=== PATIENT | female | born 1955 | race Caucasian/White ===

== ENCOUNTER → 2018-05-24 | Day surgery (SDC) | payer OTHER ==
[~2018-05-24] MED LIST: ATENOLOL50 MG PO; FENTANYL CITRATE/PF 100MCG/2 ML INJ ONE; FOLIC ACID1 MG PO; GLUCAGON FOR INJ 1 MG VIAL ONE; HYOSCYAMINE SULFATE 0.5 MG/ML INJ ONE; METHOTREXATE2.5 MG INJ; MIDAZOLAM HCL 2 MG/2 ML VIAL ONE; NEXIUM40 M1 PO; PROPOFOL IV EMULSION 10 MG/ML 50 ML VIAL ONE; REMICADE100 MG/VIA IV
--- OUTSIDE RECORDS SUMMARY | 2018-05-24 09:16 | XMS REPORT ---
Author Author Chloe James Organization eClinicalWorks Address Unknown Phone Unavailable Care Team Providers Care Drafter Patent Name Role Phone Chloe James CP Unavailable Allergies, Adverse Reactions, Alerts Substance Reaction Event Type sulfa hives Drug Allergy Problems Problem Type Condition Code Onset Dates Condition Status Problem Body mass index (BMI) 22.0-22.9, adult Z68.22 Active Problem Rheumatoid arthritis without rheumatoid factor, multiple sites M06.09 Active Problem Sicca, unspecified type M35.00 Active Assessment Other intermediate (current) drug therapy Z79.899 Active Problem Other ferry terminal supervisor (current) drug therapy Z79.899 Active Assessment Rheumatoid arthritis without rheumatoid factor, multiple sites M06.09 Active Medications Medication Code System Code Instructions Start Date End Date Status Dosage Atenolol [facility] 88762122750 100 MG Orally at bedtime Active 1 tablet Rasuvo [facility] 68671455039 12.5 MG/0.25ML Subcutaneous a week Active inject once Folic Acid [facility] 46842011555 1 Active TAKE 1 TABLET BY MOUTH DAILY Esomeprazole Magnesium [facility] 94802679986 40 MG Orally twice a day Active take 1 capsule Remicade [facility] 27667192679 7MG/KG Q 7 WKS Active 400MG IV Vital Signs Date/Time: June 21, 2017 BMI 24.73 Index Weight 148.6 lbs Height 65 in Temperature 98.4 F Cardiac Monitoring Heart Rate 70 /min Blood Pressure Diastolic 84 mm Hg Blood Pressure Systolic 131 mm Hg Results No Known Results Summary Purpose eClinicalWorks Submission
--- OUTSIDE RECORDS SUMMARY | 2018-05-24 09:16 | XMS REPORT ---
Author Leonid Velasquez Organization e[employer] Address Unknown Phone Unavailable Care Team Providers Care Game Show Host Name Role Phone Leonid Alvarez CP Unavailable Allergies No Known Allergies Problems Problem Type Condition Code Onset Dates Condition Status Problem Body mass index (BMI) 22.0-22.9, adult Z68.22 Active Problem Rheumatoid arthritis without rheumatoid factor, multiple sites M06.09 Active Problem Sicca, unspecified type M35.00 Active Problem Other fdc (current) drug therapy Z79.899 Active Medications No Known Medications Results No Known Results Summary Purpose [employer] Submission
--- OUTSIDE RECORDS SUMMARY | 2018-05-24 09:16 | XMS REPORT ---
Author Author Chloe James [facility] [place] eClinicalWorks Address Unknown Phone Unavailable Care Team Providers Care Digital Media Designer Name Role Phone Chloe James CP Unavailable Allergies, Adverse Reactions, Alerts Substance Reaction Event Type sulfa hives Drug Allergy Problems Problem Type Condition Code Onset Dates Condition Status Problem Body mass index (BMI) 22.0-22.9, adult Z68.22 Active Problem Rheumatoid arthritis without rheumatoid factor, multiple sites M06.09 Active Problem Sicca, unspecified type M35.00 Active Assessment Other residential (current) drug therapy Z79.899 Active Problem 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 Assessment Rheumatoid arthritis without rheumatoid factor, multiple sites M06.09 Active Medications Medication Code System Code Instructions Start Date End Date Status Dosage Remicade [facility] 72458880619 7MG/KG Q 7 WKS Active 400MG IV Esomeprazole Magnesium [facility] 81563555004 40 MG Orally twice a day Active take 1 capsule Rasuvo [facility] 86269139310 12.5 MG/0.25ML Subcutaneous a week Active inject once Folic Acid [facility] 40529431380 1 Active TAKE 1 TABLET BY MOUTH DAILY Atenolol [facility] 67849191343 100 MG Orally at bedtime Active 1 tablet Vital Signs Date/Time: August 09, 2017 BMI 24.89 Index Weight 149.6 lbs Height 65 in Temperature 98.0 F Cardiac Monitoring Heart Rate 78 /min Blood Pressure Diastolic 98 mm Hg Blood Pressure Systolic 144 mm Hg Results Name Result Date Reference Range Unit Abnormality Flag COMPREHENSIVE METABOLIC PANEL W/EGFR ----CALCIUM 9.0 20170809 8.6-10.4 mg/dL N ----CARBON DIOXIDE 26 20170809 20-31 mmol/L N ----ALT 26 20170809 6-29 U/L N ----CREATININE 0.88 20170809 0.50-0.99 mg/dL N ----AST 19 20170809 10-35 U/L N ----eGFR NON-AFR. [place] 71 20170809 > OR=60 mL/min/1.73m2 N ----ALKALINE PHOSPHATASE 63 20170809 33-130 U/L N ----eGFR 83 20170809 > OR=60 mL/min/1.73m2 N ----BILIRUBIN, TOTAL 0.3 20170809 0.2-1.2 mg/dL N ----BUN/CREATININE RATIO NOT APPLICABLE 20170809 6-22 (calc) ----ALBUMIN/GLOBULIN RATIO 2.0 20170809 1.0-2.5 (calc) N ----SODIUM 138 20170809 135-146 mmol/L N ----GLOBULIN 2.2 20170809 1.9-3.7 g/dL (calc) N ----POTASSIUM 4.0 20170809 3.5-5.3 mmol/L N ----GLUCOSE 109 20170809 65-139 mg/dL N ----CHLORIDE 105 20170809 98-110 mmol/L N ----ALBUMIN 4.3 20170809 3.6-5.1 g/dL N ----UREA NITROGEN (BUN) 14 20170809 7-25 mg/dL N ----PROTEIN, TOTAL 6.5 20170809 6.1-8.1 g/dL N SED RATE BY MODIFIED WESTERGREN ----SED RATE BY MODIFIED WESTERGREN 2 20170809 < OR=30 mm/h N C-REACTIVE PROTEIN ----C-REACTIVE PROTEIN 0.7 20170809 <8.0 mg/L N CBC (INCLUDES DIFF/PLT) ----MCHC 34.1 20170809 32.0-36.0 g/dL N ----MCH 32.6 20170809 27.0-33.0 pg N ----PLATELET COUNT 309 20170809 140-400 Thousand/uL N ----RDW 12.9 20170809 11.0-15.0 % N ----BASOPHILS 0.6 20170809 % N ----ABSOLUTE NEUTROPHILS 4175 20170809 0309-8849 cells/uL N ----ABSOLUTE LYMPHOCYTES 2101 20170809 850-3900 cells/uL N ----MPV 10.1 20170809 7.5-12.5 fL N ----ABSOLUTE BASOPHILS 41 20170809 0-200 cells/uL N ----HEMATOCRIT 38.7 20170809 35.0-45.0 % N ----NEUTROPHILS 61.4 20170809 % N ----MCV 95.6 20170809 80.0-100.0 fL N ----RED BLOOD CELL COUNT 4.05 20170809 3.80-5.10 Million/uL N ----ABSOLUTE MONOCYTES 394 20170809 200-950 cells/uL N ----ABSOLUTE EOSINOPHILS 88 20170809 15-500 cells/uL N ----HEMOGLOBIN 13.2 20170809 11.7-15.5 g/dL N ----EOSINOPHILS 1.3 20170809 % N ----WHITE BLOOD CELL COUNT 6.8 20170809 3.8-10.8 Thousand/uL N ----LYMPHOCYTES 30.9 20170809 % N ----MONOCYTES 5.8 20170809 % N Summary Purpose eClinicalWorks Submission
--- OUTSIDE RECORDS SUMMARY | 2018-05-24 09:16 | XMS REPORT ---
Author Author Merari Plummer [facility] eClinicalWorks Address Unknown Phone Unavailable Care Team Providers Care Warehouse Order Picker Name Role Phone Merari Plummer Unavailable Allergies, Adverse Reactions, Alerts Substance Reaction Event Type sulfa hives Drug Allergy Problems Problem Type Condition Code Onset Dates Condition Status Problem Body mass index (BMI) 22.0-22.9, adult Z68.22 Active Problem Rheumatoid arthritis without rheumatoid factor, multiple sites M06.09 Active Problem Sicca, unspecified type M35.00 Active Assessment Rheumatoid arthritis without rheumatoid factor, multiple sites M06.09 Active Assessment Other [facility]p (current) drug therapy Z79.899 Active Problem 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 Medications Medication Code System Code Instructions Start Date End Date Status Dosage Esomeprazole Magnesium ND 40347228460 40 MG Orally twice a day Active take 1 capsule Rasuvo [facility] 56205847809 12.5 MG/0.25ML Subcutaneous a week Active inject once Atenolol ND 22845964354 100 MG Orally at bedtime Active 1 tablet Folic Acid ND 50487210104 1 Active TAKE 1 TABLET BY MOUTH DAILY Remicade ND 58203309534 7MG/KG Q 7 WKS Active 400MG IV Folic Acid ND 03378895764 1 MG Orally Once a day Active 1 tablet Vital Signs Date/Time: Jan 03, 2018 BMI 24.76 Index Weight 146.5 lbs Height 64.5 in Temperature 98.2 F Cardiac Monitoring Heart Rate 74 /min Blood Pressure Diastolic 78 mm Hg Blood Pressure Systolic 122 mm Hg Results No Known Results Summary Purpose eClinicalWorks Submission
--- OUTSIDE RECORDS SUMMARY | 2018-05-24 09:16 | XMS REPORT ---
Author Leonid Velasquez Organization eClinical[employer] Address Unknown Phone Unavailable Care Team Providers Care Siding Mechanic Name Role Phone Leonid Alvarez CP Unavailable Allergies No Known Allergies Problems Problem Type Condition Code Onset Dates Condition Status Problem Body mass index (BMI) 22.0-22.9, adult Z68.22 Active Problem Rheumatoid arthritis without rheumatoid factor, multiple sites M06.09 Active Problem Sicca, unspecified type M35.00 Active Problem Other retirement (current) drug therapy Z79.899 Active Medications No Known Medications Results No Known Results Summary Purpose [employer]k Submission
--- OUTSIDE RECORDS SUMMARY | 2018-05-24 09:16 | XMS REPORT ---
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.899 Active Assessment Rheumatoid arthritis without rheumatoid factor, multiple sites M06.09 Active Medications Medication Code System Code Instructions Start Date End Date Status Dosage Folic Acid [facility] 98066484880 1 MG Orally Once a day Active 1 tablet Remicade [facility] 23133888987 7MG/KG Q 7 WKS Active 400MG IV Atenolol [facility] 06015724850 100 MG Orally at bedtime Active 1 tablet Esomeprazole Magnesium [facility] 12797172260 40 MG Orally twice a day Active take 1 capsule Rasuvo [facility] 16000708718 12.5 MG/0.25ML Subcutaneous a week Active inject once Vital Signs Date/Time: Nov 15, 2017 BMI 24.64 Index Weight 145.8 lbs Height 64.5 in Temperature 98.1 F Cardiac Monitoring Heart Rate 77 /min Blood Pressure Diastolic 86 mm Hg Blood Pressure Systolic 121 mm Hg Results No Known Results Summary Purpose eClinicalWorks Submission
--- OUTSIDE RECORDS SUMMARY | 2018-05-24 09:16 | XMS REPORT ---
Author Leonid Velasquez Organization eClinicalWorks Address Unknown Phone Unavailable Care Team Providers Care Spot Machine Operator Name Role Phone Leonid Alvarez CP Unavailable Allergies No Known Allergies Problems Problem Type Condition Code Onset Dates Condition Status Problem Body mass index (BMI) 22.0-22.9, adult Z68.22 Active Problem Rheumatoid arthritis without rheumatoid factor, multiple sites M06.09 Active Problem Sicca, unspecified type M35.00 Active Problem Other alf (current) drug therapy Z79.899 Active Assessment Rheumatoid arthritis without rheumatoid factor, multiple sites M06.09 Active Medications Medication Code System Code Instructions Start Date End Date Status Dosage Folic Acid [facility] 32390771162 1 MG Orally Once a day Active 1 tablet Results No Known Results Summary Purpose eClinicalWorks Submission
--- OUTSIDE RECORDS SUMMARY | 2018-05-24 09:16 | XMS REPORT ---
Author Author Chloe James Organization eClinicalWorks Address Unknown Phone Unavailable Care Team Providers Care Video Technician Name Role Phone Chloe James CP Unavailable Allergies No Known Allergies Problems Problem Type Condition Code Onset Dates Condition Status Problem Body mass index (BMI) 22.0-22.9, adult Z68.22 Active Problem Rheumatoid arthritis without rheumatoid factor, multiple sites M06.09 Active Problem Sicca, unspecified type M35.00 Active Problem Other retirement (current) drug therapy Z79.899 Active Medications Medication Code System Code Instructions Start Date End Date Status Dosage Rasuvo [facility] 98036941173 12.5 MG/0.25ML Subcutaneous a week September 27, 2017 Active inject once Results No Known Results Summary Purpose eClinicalWorks Submission
--- OUTSIDE RECORDS SUMMARY | 2018-05-24 09:16 | XMS REPORT ---
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 Medications Medication Code System Code Instructions Start Date End Date Status Dosage Folic Acid [facility] 14591677237 1 MG Orally Once a day Active 1 tablet Remicade [facility] 66349803886 7MG/KG Q 7 WKS Active 400MG IV Rasuvo ND 52870431166 12.5 MG/0.25ML Subcutaneous a week Active inject once Esomeprazole Magnesium ND 09204666660 40 MG Orally twice a day Active take 1 capsule Atenolol ND 18003716511 100 MG Orally at bedtime Active 1 tablet Vital Signs Date/Time: Feb 21, 2018 BMI 25 Index Weight 143.7 lbs Height 64 in Temperature 98.3 F Cardiac Monitoring Heart Rate 68 /min Blood Pressure Diastolic 98 mm Hg Blood Pressure Systolic 126 mm Hg Results No Known Results Summary Purpose eClinicalWorks Submission
--- OUTSIDE RECORDS SUMMARY | 2018-05-24 09:16 | XMS REPORT ---
Author Leonid Velasquez Organization eClinicalWorks Address Unknown Phone Unavailable Care Team Providers Care Foreman/Pile Driving And Erection Name Role Phone Leonid Alvarez CP Unavailable Allergies No Known Allergies Problems Problem Type Condition Code Onset Dates Condition Status Problem Body mass index (BMI) 22.0-22.9, adult Z68.22 Active Problem Rheumatoid arthritis without rheumatoid factor, multiple sites M06.09 Active Problem Sicca, unspecified type M35.00 Active Problem Other jail (current) drug therapy Z79.899 Active Medications No Known Medications Results No Known Results Summary Purpose [id number] Submission
--- OUTSIDE RECORDS SUMMARY | 2018-05-24 09:17 | XMS REPORT ---
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 Problem Body mass index (BMI) 22.0-22.9, adult Z68.22 Active Assessment Rheumatoid arthritis without rheumatoid factor, multiple sites M06.09 Active Assessment 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 Medications Medication Code System Code Instructions Start Date End Date Status Dosage Atenolol ND 20134898325 100 MG Orally at bedtime Active 1 tablet Esomeprazole Magnesium ND 52270062820 40 MG Orally twice a day Active take 1 capsule Rasuvo ND 96815928915 12.5 MG/0.25ML Subcutaneous a week Active inject once Remicade ND 25485413643 7MG/KG Q 7 WKS Active 400MG IV Folic Acid ND 82775317862 1 Active TAKE 1 TABLET BY MOUTH ONCE A DAY FOR 30 DAYS Vital Signs Date/Time: Mar 15, 2017 BMI 24.29 Index Weight 146 lbs Height 65 in Temperature 98.3 F Cardiac Monitoring Heart Rate 78 /min Blood Pressure Diastolic 80 mm Hg Blood Pressure Systolic 136 mm Hg Results No Known Results Summary Purpose eClinicalWorks Submission
--- OUTSIDE RECORDS SUMMARY | 2018-05-24 09:17 | XMS REPORT | Continuity of Care Document ---
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 Diagnosis 02/23/2018 Adan Alvarez Body mass index 22.0-22.9, adult Active Problem 02/23/2018 Adan Alvarez Sicca, unspecified type Active Problem 02/23/2018 Adan Alvarez Medications Medication Details Route Status Patient Instructions Ordering Provider Order Date Source Rasuvo inject once Subcutaneous Active 12.5 MG/0.25ML Subcutaneous a week Jacob 09/27/2017 Adan Alvarez Esomeprazole Magnesium take 1 capsule Orally Active 40 MG Orally twice a day [place] Adan Alvarez Folic Acid TAKE 1 TABLET BY MOUTH DAILY NA Active 1 Plummer Adan Alvarez Atenolol 1 tablet Orally Active 100 MG Orally at bedtime Plummer Adan Alvarez Remicade 400MG IV NA Active 7MG/KG Q 7 WKS Plummer Adan Alvarez Rasuvo inject once Subcutaneous Active 12.5 MG/0.25ML Subcutaneous a week Plummer Adan Alvarez Folic Acid 1 tablet Orally Active 1 MG Orally Once a day Elian Alvarez Allergies, Adverse Reactions, Alerts Substance Category Reaction Severity Reaction type Status Date Reported Comments Source sulfa Adverse Reaction hives Adverse Reaction Active 02/21/2018 Adan Alvarez Immunizations Immunization Date Given Site Status Last Updated Comments Source Results Order Name Results Value Reference Range Date Interpretation Comments Source Vital Signs Vital Sign Value Date Comments Source Weight 143.7 02/21/2018 Adan Alvarez Height 64 02/21/2018 Adan Alvarez Temperature Oral (F) 98.3 F 02/21/2018 Adan Alvarez Heart Rate 68 02/21/2018 Adan Alvarez Diastolic (mm Hg) 98 02/21/2018 Adan Alvarez Systolic (mm Hg) 126 02/21/2018 Adan Alvarez Weight 146.5 01/03/2018 Adan Alvarez Height 64.5 01/03/2018 Adan Alvarez Temperature Oral (F) 98.2 F 01/03/2018 Adan Alvarez Heart Rate 74 01/03/2018 Adan Alvarez Diastolic (mm Hg) 78 01/03/2018 Adan Alvarez Systolic (mm Hg) 122 01/03/2018 Adan Alvarez Weight 145.8 11/15/2017 Adan Alvarez Height 64.5 11/15/2017 Adan Alvarez Temperature Oral (F) 98.1 F 11/15/2017 Adan Alvarez Heart Rate 77 11/15/2017 Adan Alvarez Diastolic (mm Hg) 86 11/15/2017 Adan Alvarez Systolic (mm Hg) 121 11/15/2017 Adan Alvarez Weight 149.6 08/09/2017 Adan Alvarez Height 65 08/09/2017 Adan Alvarez Temperature Oral (F) 98.0 F 08/09/2017 Adan Alvarez Heart Rate 78 08/09/2017 Adan Alvarez Diastolic (mm Hg) 98 08/09/2017 Adan Alvarez Systolic (mm Hg) 144 08/09/2017 Adan Alvarez Weight 148.6 06/21/2017 Adan Alvarez Height 65 06/21/2017 Adan Alvarez Temperature Oral (F) 98.4 F 06/21/2017 Adan Alvarez Heart Rate 70 06/21/2017 Adan Alvarez Diastolic (mm Hg) 84 06/21/2017 Adan Alvarez Systolic (mm Hg) 131 06/21/2017 Adan Alvarez Weight 147.1 05/03/2017 Adan Alvarez Height 65 05/03/2017 Adan Alvarez Temperature Oral (F) 97.6 F 05/03/2017 Adan Alvarez Heart Rate 71 05/03/2017 Adan Alvarez Diastolic (mm Hg) 78 05/03/2017 Adan Alvarez Systolic (mm Hg) 124 05/03/2017 Adan Alvarez Weight 146 03/15/2017 Adan Alvarez Height 65 03/15/2017 Adan Alvarez Temperature Oral (F) 98.3 F 03/15/2017 Adan Alvarez Heart Rate 78 03/15/2017 Adan Alvarez Diastolic (mm Hg) 80 03/15/2017 Adan Alvarez Systolic (mm Hg) 136 03/15/2017 Adan Alvarez Weight 147.3 01/24/2017 Adan Alvarez Height 65 01/24/2017 Adanalejandra Alvarez Temperature Oral (F) 98.3 F 01/24/2017 Adan Alvarez Heart Rate 96 01/24/2017 Adan Alvarez Diastolic (mm Hg) 80 01/24/2017 Adan Alvarez Systolic (mm Hg) 118 01/24/2017 Adan Alvarez Encounters Location Location Details Encounter Type Encounter Number Reason For Visit Attending Provider ADM Date DC Date Status Source Procedures Procedure Code Date Perfomer Comments Source
--- OUTSIDE RECORDS SUMMARY | 2018-05-24 09:17 | XMS REPORT ---
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 Problem Body mass index (BMI) 22.0-22.9, adult Z68.22 Active Assessment Rheumatoid arthritis without rheumatoid factor, multiple sites M06.09 Active Assessment Other dedicated intermodal truck driver (current) drug therapy Z79.899 Active Medications Medication Code System Code Instructions Start Date End Date Status Dosage Esomeprazole Magnesium [facility] 70401161669 40 MG Orally twice a day Active take 1 capsule Folic Acid ND 96452289132 1 Active TAKE 1 TABLET BY MOUTH ONCE A DAY FOR 30 DAYS Atenolol ND 67996809934 100 MG Orally at bedtime Active 1 tablet Remicade [facility] 99637961007 7MG/KG Q 7 WKS Active 400MG IV Rasuvo ND 16359453291 12.5 MG/0.25ML Subcutaneous a week Active inject once Vital Signs Date/Time: Jan 24, 2017 BMI 24.51 Index Weight 147.3 lbs Height 65 in Temperature 98.3 F Cardiac Monitoring Heart Rate 96 /min Blood Pressure Diastolic 80 mm Hg Blood Pressure Systolic 118 mm Hg Results No Known Results Summary Purpose eClinicalWorks Submission
--- OUTSIDE RECORDS SUMMARY | 2018-05-24 09:17 | XMS REPORT ---
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.899 Active Assessment Sicca, unspecified type M35.00 Active Problem Other termite treater helper (current) drug therapy Z79.899 Active Assessment Rheumatoid arthritis without rheumatoid factor, multiple sites M06.09 Active Medications Medication Code System Code Instructions Start Date End Date Status Dosage Atenolol [facility] 45826802018 100 MG Orally at bedtime Active 1 tablet Remicade [facility] 41374010339 7MG/KG Q 7 WKS Active 400MG IV Folic Acid ND 17102582960 1 Active TAKE 1 TABLET BY MOUTH EVERY DAY Esomeprazole Magnesium [facility] 64184013658 40 MG Orally twice a day Active take 1 capsule Rasuvo [facility] 08089091520 12.5 MG/0.25ML Subcutaneous a week Active inject once Vital Signs Date/Time: May 03, 2017 BMI 24.48 Index Weight 147.1 lbs Height 65 in Temperature 97.6 F Cardiac Monitoring Heart Rate 71 /min Blood Pressure Diastolic 78 mm Hg Blood Pressure Systolic 124 mm Hg Results Name Result Date Reference Range Unit Abnormality Flag COMPREHENSIVE METABOLIC PANEL W/EGFR ----CALCIUM 9.4 20170503 8.6-10.4 mg/dL N ----CARBON DIOXIDE 28 20170503 20-31 mmol/L N ----ALT 17 20170503 6-29 U/L N ----CREATININE 1.03 20170503 0.50-0.99 mg/dL H ----AST 16 20170503 10-35 U/L N ----eGFR NON-AFR. [place]ESE 59 20170503 > OR=60 mL/min/1.73m2 L ----ALKALINE PHOSPHATASE 56 20170503 33-130 U/L N ----eGFR 68 20170503 > OR=60 mL/min/1.73m2 N ----BILIRUBIN, TOTAL 0.5 20170503 0.2-1.2 mg/dL N ----BUN/CREATININE RATIO 15 20170503 6-22 (calc) N ----ALBUMIN/GLOBULIN RATIO 2.1 20170503 1.0-2.5 (calc) N ----SODIUM 136 20170503 135-146 mmol/L N ----GLOBULIN 2.1 20170503 1.9-3.7 g/dL (calc) N ----POTASSIUM 4.6 20170503 3.5-5.3 mmol/L N ----GLUCOSE 93 20170503 65-99 mg/dL N ----CHLORIDE 103 20170503 98-110 mmol/L N ----ALBUMIN 4.4 69757119 3.6-5.1 g/dL N ----UREA NITROGEN (BUN) 15 20170503 7-25 mg/dL N ----PROTEIN, TOTAL 6.5 78545955 6.1-8.1 g/dL N SED RATE BY MODIFIED WESTERGREN ----SED RATE BY MODIFIED WESTERGREN 5 20170503 < OR=30 mm/h N C-REACTIVE PROTEIN ----C-REACTIVE PROTEIN 0.7 20170503 <8.0 mg/L N CBC (INCLUDES DIFF/PLT) ----MCHC 34.2 20170503 32.0-36.0 g/dL N ----MCH 32.5 20170503 27.0-33.0 pg N ----PLATELET COUNT 340 20170503 140-400 Thousand/uL N ----RDW 13.6 20170503 11.0-15.0 % N ----BASOPHILS 0.6 83710770 % N ----ABSOLUTE NEUTROPHILS 4281 20170503 9274-7183 cells/uL N ----ABSOLUTE LYMPHOCYTES 2180 20170503 850-3900 cells/uL N ----MPV 9.9 41225063 7.5-12.5 fL N ----ABSOLUTE BASOPHILS 43 63262250 0-200 cells/uL N ----HEMATOCRIT 37.1 91966357 35.0-45.0 % N ----NEUTROPHILS 60.3 93443647 % N ----MCV 94.9 76694382 80.0-100.0 fL N ----RED BLOOD CELL COUNT 3.91 58901044 3.80-5.10 Million/uL N ----ABSOLUTE MONOCYTES 518 20170503 200-950 cells/uL N ----ABSOLUTE EOSINOPHILS 78 74083557 15-500 cells/uL N ----HEMOGLOBIN 12.7 05729544 11.7-15.5 g/dL N ----EOSINOPHILS 1.1 12588815 % N ----WHITE BLOOD CELL COUNT 7.1 29117431 3.8-10.8 Thousand/uL N ----LYMPHOCYTES 30.7 04915194 % N ----MONOCYTES 7.3 04140211 % N Summary Purpose [employer] Submission
[2018-05-24 15:15] VITALS: BP 106/66
--- NOTE | 2018-05-25 01:07 | Operative Report ---
DATE OF PROCEDURE: 05/24/2018 SURGEON: Zach Harman MD PROCEDURE: Esophagogastroduodenoscopy with biopsies and colonoscopy with polypectomy. INDICATION FOR EGD: History of gastric ulcer. INDICATIONS FOR COLONOSCOPY: Colorectal cancer screening. MEDICATIONS: The patient was done under MAC, please see anesthesiologist's note. PROCEDURE IN DETAIL: With the patient in the left lateral decubitus position, flexible fiberoptic Olympus gastroscope was introduced into the esophagus under direct visualization without any difficulty. There was some patchy erythema noted in the distal esophagus. The scope was then advanced with ease into the stomach traversing a 3 cm hiatal hernia. Two minute nodules were noted in the hiatal hernia sac and those were biopsied. The mucosa overlying the antrum and the body revealed some patchy erythema and low-grade to moderate edema and biopsies were obtained and sent to stain for H pylori. Some hyperplastic-appearing polyps were noted in the body of the stomach and somewhat partially excised with the cold biopsy forceps. A large fold was noted in the body of the stomach that was also biopsied. The pylorus appeared to be of normal contour and shape, was intubated with ease, and the scope was advanced all the way to the second portion of the duodenum. Biopsies were obtained from the proximal second portion and the duodenal bulb to rule out sprue. Two minute nodules were also biopsied from the duodenal bulb. The scope was then withdrawn back into the stomach and retroflexed. Mucosa overlying the fundus appeared to be within normal limits. The previously described hiatal hernia was also noted in the retroflexed position. The scope was then straightened out and it was subsequently withdrawn. The patient tolerated the procedure well. IMPRESSION: 1. Distal esophagitis, mild. 2. A 3 cm hiatal hernia. 3. Nodules x2. Hiatal hernia sac biopsy. 4. Gastritis, biopsied. Biopsies sent to stain for H pylori. 5. Gastric polyps, body, hyperplastic appearing and some partially excised with cold biopsy forceps. 6. Prominent rugal fold, biopsied. 7. Rule out sprue. 8. Duodenal nodules, minute, bulb biopsy. PLAN: Followup histology. Continue Nexium 40 mg one p.o. q.a.m. a.c. The patient was then turned around and after adequate lubrication of the anal canal, a flexible fiberoptic Olympus colonoscope was inserted into the rectum with ease and advanced all the way to the cecum. One polyp was hot biopsied from the cecum and polypectomy site was hemoclipped x2. The mucosa overlying the ascending, transverse, descending, and sigmoid grossly appeared to be within normal limits other than for some diverticular disease, more pronounced in the left colon. Two minute polyps were hot biopsied from the rectum. The scope was then retroflexed into the distal rectum and small internal hemorrhoids were noted, none of which was actively bleeding. The scope was then straightened out and it was subsequently withdrawn. The patient tolerated the procedure well. IMPRESSION: 1. Cecal polyp x1, hot biopsied, site hemoclipped x2. 2. Diverticulosis. 3. Rectal polyps x2, hot biopsied. 4. Internal hemorrhoids, none actively bleeding. PLAN: Followup histology. Initiate high-fiber, low-fat diet. Initiate high-fiber supplement. The patient might benefit from a followup colonoscopy in 5 years. Zach Harman MD [facility] [place] [id number] cc: Waldo Long MD
== END | disposition home or self-care (01) ==
LOC: OR 09:11
PROVIDERS: ATTEND Internal Medicine Gastroenterology
DX: K25.9 Gastric ulcer, unspecified as acute or chronic, without hemorrhage or perforation (principal); K63.5 Polyp of colon; K62.1 Rectal polyp; K31.7 Polyp of stomach and duodenum; K29.70 Gastritis, unspecified, without bleeding; K21.9 Gastro-esophageal reflux disease without esophagitis; Q40.8 Other specified congenital malformations of upper alimentary tract; K31.89 Other diseases of stomach and duodenum; K20.9 Esophagitis, unspecified; K44.9 Diaphragmatic hernia without obstruction or gangrene; K57.30 Diverticulosis of large intestine without perforation or abscess without bleeding; K64.8 Other hemorrhoids; I10 Essential (primary) hypertension; M06.9 Rheumatoid arthritis, unspecified; F41.9 Anxiety disorder, unspecified; Z88.2 Allergy status to sulfonamides
CPT/HCPCS: 43239; 45384; J1610; J1980; J2250; J2704; 45378

== ENCOUNTER → 2020-02-24 | Outpatient (CLI) | payer OTHER ==
[~2020-02-24] MED LIST changes: -FENTANYL CITRATE/PF 100MCG/2 ML INJ ONE; -GLUCAGON FOR INJ 1 MG VIAL ONE; -HYOSCYAMINE SULFATE 0.5 MG/ML INJ ONE; -MIDAZOLAM HCL 2 MG/2 ML VIAL ONE; -PROPOFOL IV EMULSION 10 MG/ML 50 ML VIAL ONE
== END ==
LOC: MAMMO 13:45
PROVIDERS: ATTEND Specialist
DX: Z12.31 Encounter for screening mammogram for malignant neoplasm of breast (principal); M85.88 Other specified disorders of bone density and structure, other site; Z78.0 Asymptomatic menopausal state
CPT/HCPCS: 77067; 77080

== ENCOUNTER → 2023-11-08 | Outpatient (REF) | payer MEDICARE, OTHER ==
[~2023-11-08] MED LIST changes: +ASPIRIN81 MG PO; +CALCIUM PO; -METHOTREXATE2.5 MG INJ; +METHOTREXATE2.5 MG PO; +MULTI-VITAMIN1 EACH PO
== END ==
LOC: DX 08:45
PROVIDERS: ATTEND Surgery
DX: K21.9 Gastro-esophageal reflux disease without esophagitis (principal); K44.9 Diaphragmatic hernia without obstruction or gangrene
CPT/HCPCS: 74246